=== PATIENT | male | born 2000 | race Caucasian/White ===

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

== ENCOUNTER 2019-05-02 10:44 | Emergency (ER) | payer MEDICAID ==
[~2019-05-02] VITALS: Ht 170.2 cm; Wt 60.0 kg
[~2019-05-02 10:44] MED LIST: BEN25 PO; DIAZ5TAB PO; IBUP-1542 PO; IBUP800T48 PO; MECL12.574 PO; METO10TA92 PO; NAPR-985 PO; ONDA4TAB8 PO; PROM25TA14 PO
[2019-05-02 10:48] VITALS: Ht 170.2 cm; Wt 60.0 kg
[2019-05-02] MEDS ORDERED: KETOROLAC 60 MG INJ IM STA (11:43)
[2019-05-02] MEDS ORDERED: PROMETHAZINE 25 MG TAB PO ONE (12:00)
[2019-05-02] MEDS ORDERED: DIAZEPAM 10 MG/2 ML SYG IM ONE (12:00)
[2019-05-02] MEDS ORDERED: DEXAMETHASONE 10 MG/ML 1 ML INJ IM ONE (13:30)
[2019-05-02 13:47] VITALS: BP 115/65; PULSE 59; RESP 18
== END 2019-05-02 13:48 | disposition home or self-care (01) ==
LOC: FTE 10:44
DX: R42 Dizziness and giddiness (principal); R51 Headache
CPT/HCPCS: 93005; J1100; J1885; J3360; Z7610; 96372